=== PATIENT | female | born 1960 | race Caucasian/White ===

== ENCOUNTER 2021-05-11 18:41 | Emergency (ER) | payer OTHER ==
[~2021-05-11] VITALS: Ht 160 cm; Wt 63.0 kg
[~2021-05-11 18:41] MED LIST: CYCLOBENZAPRINE10 MG PO; LIPITOR20 MG; LIPITOR20 MG PO; LISINOPRIL-HCT1 EAC2 PO; PERCOCET 5-3251 EACH PO; TRAZODONE HCL100 MG PO; VICODIN HP 10-1 EAC1 PO; ZOFRAN4 MG PO
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
== END 2021-05-11 19:48 | disposition home or self-care (01) ==
LOC: ED 18:41
DX: S40.011A Contusion of right shoulder, initial encounter (principal); I10 Essential (primary) hypertension; E78.00 Pure hypercholesterolemia, unspecified; G47.00 Insomnia, unspecified; F17.200 Nicotine dependence, unspecified, uncomplicated; V43.62XA Car passenger injured in collision with other type car in traffic accident, initial encounter; Z79.899 Other long term (current) drug therapy; Z88.0 Allergy status to penicillin; Z88.5 Allergy status to narcotic agent
CPT/HCPCS: 73030; 99284-25